=== PATIENT | male | born 2000 | race Caucasian/White ===

== ENCOUNTER → 2018-10-19 | Outpatient (CLI) | payer BC ==
--- NOTE | 2018-10-19 15:24 | US ---
EXAMINATION TYPE: US groin RT DATE OF EXAM: 10/19/2018 COMPARISON: NONE CLINICAL HISTORY: K40.90 Unilateral inguinal hernia, without obstruc. possible strain versus hernia, no bulging area per patient, can have sharp RLQ pain Imaging was performed with and without Valsalva maneuver within the right lower quadrant and inguinal canal. Normal soft tissue scan of right groin. No obvious abnormality seen. IMPRESSION: No sonographic evidence of inguinal hernia with or without Valsalva maneuver.
== END | disposition home or self-care (01) ==
LOC: RADUSWWP 14:29
PROVIDERS: ATTEND Internal Medicine
DX: K40.90 Unilateral inguinal hernia, without obstruction or gangrene, not specified as recurrent (principal)